=== PATIENT | female | born 1985 | race Caucasian/White ===

== ENCOUNTER → 2024-11-12 15:20 | Outpatient (REF) | payer OTHER, SELFPAY | LOC: PNTC 15:20 | PROVIDERS: ATTENDING PHYSICIAN Advanced Practice Midwife | DX: O09.529 Supervision of elderly multigravida, unspecified trimester (principal) | CPT/HCPCS: 76816 ==

== ENCOUNTER → 2024-11-20 08:57 | Outpatient (REF) | payer OTHER, SELFPAY ==
--- NOTE | 2024-11-20 09:15 | PN.DIAED06 ---
Meal Plan - Gestational
- Breakfast
Gestational Diabetes Meal Plan Name: 2000 calories
Breakfast - Total Carbohydrate (grams): 45
Breakfast - Starch Carbohydrate: 2
Breakfast - Fruit Carbohydrate: 0
Breakfast - Milk Carbohydrate: 1
Breakfast - Nonstarchy Vegetables: Yes
Breakfast - Meat/Protein: 1
Breakfast - Fat: 2
- Morning Snack
Morning Snack - Total Carbohydrate (grams): 30
Morning Snack - Starch Carbohydrate: 1
Morning Snack - Fruit Carbohydrate: 0
Morning Snack - Milk Carbohydrate: 1
Morning Snack - Nonstarchy Vegetables: Yes
Morning Snack - Meat/Protein: 0
Morning Snack - Fat: 0
- Lunch
Lunch - Total Carbohydrate (grams): 45
Lunch - Starch Carbohydrate: 1
Lunch - Fruit Carbohydrate: 1
Lunch - Milk Carbohydrate: 1
Lunch - Nonstarchy Vegetables: Yes
Lunch - Meat/Protein: 2
Lunch - Fat: 2
- Afternoon Snack
Afternoon Snack - Total Carbohydrate (grams): 30
Afternoon Snack - Starch Carbohydrate: 1
Afternoon Snack - Fruit Carbohydrate: 1
Afternoon Snack - Milk Carbohydrate: 0
Afternoon Snack - Nonstarchy Vegetables: Yes
Afternoon Snack - Meat/Protein: 1
Afternoon Snack - Fat: 0
- Dinner
Dinner - Total Carbohydrate (grams): 45
Dinner - Starch Carbohydrate: 2
Dinner - Fruit Carbohydrate: 1
Dinner - Milk Carbohydrate: 0
Dinner - Nonstarchy Vegetables: Yes
Dinner - Meat/Protein: 2
Dinner - Fat: 2
- Evening Snack
Evening Snack - Total Carbohydrate (grams): 45
Evening Snack - Starch Carbohydrate: 1
Evening Snack - Fruit Carbohydrate: 1
Evening Snack - Milk Carbohydrate: 1
Evening Snack - Nonstarchy Vegetables: Yes
Evening Snack - Meat/Protein: 1
Evening Snack - Fat: 0
--- NOTE | 2024-11-20 11:45 | PN.DE ---
Diabetes Education
- -
Ayanna presented with her for medical nutrition therapy. She is 30 weeks gestation with her 2nd and has a 4 year old daughter at home. Ayanna did not have gestational diabetes in her first and denies having a family
history of diabetes. I reviewed glucose metabolism in the body and what occurs during to cause an increase in the blood glucose. I discussed the importance of keeping the blood glucose levels within target range in order to prevent
potential complications to the baby during and at delivery.
I explained to Deb that she is at an increased risk to develop T2DM given the diagnosis of gestational diabetes. She has a good knowledge of healthy nutrition and had already started to make adjustments to her daily meals. I provided her with a
2000 calorie gestational meal plan and reviewed it in detail. We also discussed the benefit of physical activity to help decrease blood glucose levels.
Ayanna was able to return demonstrate a fingerstick blood glucose with the [employer] EZ glucometer. Her blood glucose a few hours post breakfast was 76 mg/dL. We reviewed target blood glucose levels fasting and 2 hours post meals. I provided
written material on managing gestational diabetes that highlights target glucose ranges. Ayanna was encouraged to reach out with any questions or if she should require the use of insulin.
== END ==
LOC: DES 08:57
PROVIDERS: ATTENDING PHYSICIAN Advanced Practice Midwife
DX: O24.419 Gestational diabetes mellitus in pregnancy, unspecified control (principal)
CPT/HCPCS: 99078

== ENCOUNTER → 2024-12-10 08:39 | Outpatient (REF) | payer OTHER, SELFPAY | LOC: PNTC 08:39 | PROVIDERS: ATTENDING PHYSICIAN Advanced Practice Midwife | DX: O24.419 Gestational diabetes mellitus in pregnancy, unspecified control (principal) | CPT/HCPCS: 76816 ==

== ENCOUNTER → 2024-12-23 16:51 | Outpatient (REF) | payer OTHER, SELFPAY | LOC: PNTC 16:51 | PROVIDERS: ATTENDING PHYSICIAN Advanced Practice Midwife | DX: O09.529 Supervision of elderly multigravida, unspecified trimester (principal) | CPT/HCPCS: 59025 ==

== ENCOUNTER 2025-01-06 17:41 | Observation (INO) | payer OTHER, SELFPAY ==
[2025-01-06 18:01] LABS: Urine Albumin Negative (Neg - Trace); Urine Bilirubin Negative (Negative); Urine Character Clear (Clear); Urine Color Yellow; Urine Glucose Negative (Negative); Urine Ketone 3+ (Negative); Urine Leukocyte Negative (Negative); Urine Nitrite Negative (Negative); Urine Occult Blood Negative (Negative); Urine Urobilinogen Negative (Neg - 1+)
[2025-01-06 18:09] LABS: % Basophils 0.5 % (0-2); % Eosinophils 0.4 % (0-6); % Immature Granulocytes 0.4 % (0-0.5); % Lymphocytes 19.8 % (20.5-51.1); % Neutrophils 71.9 % (42.2-75.2); Absolute Basophils 0.1 10^3/uL (0-0.2); Absolute Eosinophils 0.1 10^3/uL (0-0.7); Absolute Immature Granulocytes 0.1 10^3/uL (0-0.05); Absolute Lymphocytes 2.7 10^3/uL (1.2-3.4); Absolute Neutrophils 9.8 10^3/uL (1.4-6.5); Hematocrit 38.7 % (37.0-47.0); Hemoglobin 13.5 g/dL (12.0-16.0); Mean Corp Hgb Conc. 34.9 g/dL (33.0-37.0); Mean Corpuscular Hgb 30.6 pg (27.0-31.0); Mean Corpuscular Volume 87.8 fL (81.0-99.0); Mean Platelet Volume 10.5 fL (7.4-10.4); Nucleated Red Blood Cells % 0 %; Platelet Count 281 10^3/uL (130-400); Red Blood Cell Count 4.41 10^6/uL (4.20-5.40); Red Cell Dist. Width 13.1 % (11.5-14.5); White Blood Cell Count 13.6 10^3/uL (4.8-10.8)
[2025-01-06 18:10] VITALS: BP 161/68; BMI 30.4
[2025-01-06 18:19] LABS: ALT (SGPT) 12 U/L (0-35); AST (SGOT) 19 U/L (14-36); Albumin 3.8 g/dl (3.5-5.0); Alkaline Phosphatase 149 U/L (38-126); Blood Urea Nitrogen 9 mg/dl (7-17); Calcium 9.7 mg/dl (8.4-10.2); Carbon Dioxide 15 mmol/L (22-30); Chloride 107 mmol/L (98-107); Estimated Creatinine Clearance > 125 ml/min; Glucose 108 mg/dl (70-99); Potassium 3.7 mmol/L (3.5-5.1); Sodium 133 mmol/L (135-145); Total Bilirubin 0.5 mg/dl (0.2-1.3); Total Protein 7.2 g/dl (6.3-8.2); eGFR > 60.00
[2025-01-06 18:23] LABS: Protein/creatinine Ratio 0.9; Urine Protein 18 mg/dl
[2025-01-06 19:30] VITALS: BP 142/88; BMI 31.4
[2025-01-06] MEDS: CELESTONE SOLUSPAN 2 MG IM (21:08)
== END 2025-01-07 08:51 | disposition home or self-care (01) ==
LOC: LDRP 17:41
PROVIDERS: Obstetrics & Gynecology; ADMITTING PHYSICIAN Advanced Practice Midwife
DX: O24.410 Gestational diabetes mellitus in pregnancy, diet controlled (principal); O09.523 Supervision of elderly multigravida, third trimester; Z3A.36 36 weeks gestation of pregnancy
CPT/HCPCS: 59025; 76816; 80053; 81003; 82570; 84156; 85025; 87070; G0378

== ENCOUNTER 2025-01-07 17:51 | Observation (INO) | payer OTHER, SELFPAY ==
[2025-01-07 17:58] VITALS: BP 118/80; BMI 31.4
[2025-01-07] MEDS: CELESTONE SOLUSPAN 2 MG IM (18:15)
== END 2025-01-07 18:25 | disposition home or self-care (01) ==
LOC: LDRP 17:51
PROVIDERS: ADMITTING PHYSICIAN Advanced Practice Midwife
DX: O13.3 Gestational [pregnancy-induced] hypertension without significant proteinuria, third trimester (principal); Z3A.36 36 weeks gestation of pregnancy
CPT/HCPCS: 96372; J0702; G0378

== ENCOUNTER → 2025-01-13 16:55 | Outpatient (REF) | payer OTHER, SELFPAY | LOC: PNTC 16:55 | PROVIDERS: ATTENDING PHYSICIAN Advanced Practice Midwife | DX: O09.529 Supervision of elderly multigravida, unspecified trimester (principal) | CPT/HCPCS: 59025 ==

== ENCOUNTER 2025-01-13 17:57 | Inpatient (IN) | payer OTHER, SELFPAY ==
[2025-01-13 18:09] VITALS: BP 156/102; BMI 31.4
[2025-01-13 19:03] LABS: Hematocrit 36.3 % (37.0-47.0); Hemoglobin 12.5 g/dL (12.0-16.0); Mean Corp Hgb Conc. 34.4 g/dL (33.0-37.0); Mean Corpuscular Hgb 30.7 pg (27.0-31.0); Mean Corpuscular Volume 89.2 fL (81.0-99.0); Mean Platelet Volume 10.5 fL (7.4-10.4); Platelet Count 289 10^3/uL (130-400); Red Blood Cell Count 4.07 10^6/uL (4.20-5.40); Red Cell Dist. Width 13.1 % (11.5-14.5); White Blood Cell Count 11.2 10^3/uL (4.8-10.8)
[2025-01-13 19:03] LABS: Urine Albumin Negative (Neg - Trace); Urine Bilirubin Negative (Negative); Urine Character Clear (Clear); Urine Color Yellow; Urine Glucose Negative (Negative); Urine Ketone 1+ (Negative); Urine Leukocyte Negative (Negative); Urine Nitrite Negative (Negative); Urine Occult Blood Negative (Negative); Urine Urobilinogen Negative (Neg - 1+); Urine pH 6.5 (5.0-9.0)
[2025-01-13] MEDS: CYTOTEC 25 MICROGRAM VAG (19:16)
[2025-01-13 19:30] LABS: ALT (SGPT) 11 U/L (0-35); AST (SGOT) 17 U/L (14-36); Albumin 3.4 g/dl (3.5-5.0); Alkaline Phosphatase 136 U/L (38-126); Blood Urea Nitrogen 13 mg/dl (7-17); Calcium 9.6 mg/dl (8.4-10.2); Carbon Dioxide 19 mmol/L (22-30); Chloride 109 mmol/L (98-107); Estimated Creatinine Clearance > 125 ml/min; Glucose 133 mg/dl (70-99); Potassium 4.3 mmol/L (3.5-5.1); Sodium 135 mmol/L (135-145); Total Bilirubin 0.4 mg/dl (0.2-1.3); Total Protein 6.6 g/dl (6.3-8.2); Uric Acid 3.6 mg/dl (2.5-6.2); eGFR > 60.00
[2025-01-13 22:05] LABS: Glucose - Point of Care 99 mg/dl (70-99)
[2025-01-13] MEDS: CYTOTEC 25 MICROGRAM PO (23:37)
[2025-01-14 02:03] LABS: Glucose - Point of Care 101 mg/dl (70-99)
[2025-01-14] MEDS: CYTOTEC 25 MICROGRAM PO ×2 (04:08→08:58)
[2025-01-14 06:04] LABS: Glucose - Point of Care 92 mg/dl (70-99)
[2025-01-14 10:05] LABS: Glucose - Point of Care 93 mg/dl (70-99)
[2025-01-14] MEDS: CYTOTEC PO ×3 (15:36→18:17)
[2025-01-14] MEDS: FENTANYL/BUPIVACAINE 100 EPIDURAL (15:44)
[2025-01-14] MEDS: SUBLIMAZE 100 MCG EPIDURAL (15:44)
[2025-01-14 16:15] LABS: Glucose - Point of Care 100 mg/dl (70-99)
[2025-01-15 16:43] LABS: Hematocrit 39.1 % (37.0-47.0); Hemoglobin 13.6 g/dL (12.0-16.0); Mean Corp Hgb Conc. 34.8 g/dL (33.0-37.0); Mean Corpuscular Hgb 30.2 pg (27.0-31.0); Mean Corpuscular Volume 86.9 fL (81.0-99.0); Mean Platelet Volume 10.1 fL (7.4-10.4); Platelet Count 266 10^3/uL (130-400); Red Cell Dist. Width 13.2 % (11.5-14.5); White Blood Cell Count 12.5 10^3/uL (4.8-10.8)
[2025-01-15 16:50] LABS: ALT (SGPT) 13 U/L (0-35); AST (SGOT) 24 U/L (14-36); Albumin 3.5 g/dl (3.5-5.0); Alkaline Phosphatase 121 U/L (38-126); Blood Urea Nitrogen 12 mg/dl (7-17); Calcium 9.3 mg/dl (8.4-10.2); Carbon Dioxide 21 mmol/L (22-30); Chloride 107 mmol/L (98-107); Estimated Creatinine Clearance > 125 ml/min; Glucose 97 mg/dl (70-99); Potassium 4.2 mmol/L (3.5-5.1); Sodium 136 mmol/L (135-145); Total Bilirubin 0.6 mg/dl (0.2-1.3); Total Protein 6.6 g/dl (6.3-8.2); eGFR > 60.00
== END 2025-01-15 19:34 | disposition home or self-care (01) | DRG 807 ==
LOC: LDRP 17:57
PROVIDERS: ADMITTING PHYSICIAN Advanced Practice Midwife
PROC: 0HQ9XZZ Repair Perineum Skin, External Approach (ICD-10-PCS; 2025-01-14)
PROC: 10907ZC Drainage of Amniotic Fluid, Therapeutic from Products of Conception, Via Natural or Artificial Opening (ICD-10-PCS; 2025-01-14)
PROC: 10E0XZZ Delivery of Products of Conception, External Approach (ICD-10-PCS; 2025-01-14)
DX: O14.04 Mild to moderate pre-eclampsia, complicating childbirth (principal); Z37.0 Single live birth; O13.4 Gestational [pregnancy-induced] hypertension without significant proteinuria, complicating childbirth; O24.420 Gestational diabetes mellitus in childbirth, diet controlled; O99.344 Other mental disorders complicating childbirth; F41.9 Anxiety disorder, unspecified; O70.0 First degree perineal laceration during delivery; Z3A.37 37 weeks gestation of pregnancy
CPT/HCPCS: 36415; 80053; 81003; 82962; 84550; 85027; 86850; 86900; 86901